=== PATIENT | male | born 1985 | race African-American/Black ===

== ENCOUNTER 2017-11-19 21:03 | Emergency (ER) | payer MEDICAID ==
[~2017-11-19] VITALS: Ht 185.4 cm; Wt 113.8 kg
[2017-11-20 00:18] VITALS: BP 155/99
== END 2017-11-20 00:18 | disposition home or self-care (01) ==
LOC: ED 21:03
DX: S29.011A Strain of muscle and tendon of front wall of thorax, initial encounter (principal); S63.91XA Sprain of unspecified part of right wrist and hand, initial encounter; M79.1 Myalgia; R03.0 Elevated blood-pressure reading, without diagnosis of hypertension; W01.0XXA Fall on same level from slipping, tripping and stumbling without subsequent striking against object, initial encounter; Y93.89 Activity, other specified; Y92.89 Other specified places as the place of occurrence of the external cause; Y99.8 Other external cause status